=== PATIENT | male | born 1965 | race Caucasian/White ===

== ENCOUNTER 2017-03-20 11:37 | Day surgery (SDC) | payer BC ==
[~2017-03-20 11:37] MED LIST: Lactated Ringers 1,000 ML IV SCH; Sodium Chloride 0.9% 10 ML Syringe FLUSH PRN
[2017-03-20] MEDS ORDERED: fentaNYL 100 MCG/2 ML SDV ONE ×2 (12:52→13:00)
[2017-03-20] MEDS ORDERED: Propofol 200 MG/20 ML SDV ONE ×2 (12:52→13:00)
[2017-03-20] MEDS ORDERED: Midazolam 1 MG/ML 2 ML SDV ONE ×2 (12:52→13:00)
--- NOTE | 2017-03-20 13:05 | PCM.PN ---
- General Info Date of Service: 03/20/17 - Review of Systems Systems Review Comment:: 51-year-old male referred for his initial screening colonoscopy. He is medically stable to proceed with no significant change in his health status since his recent history and physical which is reviewed. The patient notes that he does have a family history of colon cancer in his father. I discussed the proposed colonoscopy with the patient. Risks such as but not limited to bleeding and GI injury reviewed. He appears to understand and agrees to proceed. - Patient Data Vitals - most recent: Last Vital Signs Temp 98.2 F 03/20/17 12:24 Pulse 63 03/20/17 12:24 Resp 20 03/20/17 12:24 BP 124/80 03/20/17 12:24 Pulse Ox 96 03/20/17 12:24 Weight - most recent: 88.451 kg Med Orders - Current: Current Medications Lactated Ringer's (Ringers, Lactated) 1,000 mls @ 70 mls/hr IV ASDIRECTED GURPREET Last Admin: 03/20/17 12:39 Dose: 70 mls/hr Sodium Chloride (Saline Flush) 10 ml FLUSH ASDIRECTED PRN PRN Reason: Keep Vein Open Discontinued Medications Fentanyl (Sublimaze) Confirm Administered Dose 100 mcg .ROUTE .STK-MED ONE Stop: 03/20/17 12:53 Midazolam HCl (Versed 1 Mg/Ml) Confirm Administered Dose 2 mg .ROUTE .STK-MED ONE Stop: 03/20/17 12:53 Propofol (Diprivan 20 Ml) Confirm Administered Dose 200 mg .ROUTE .STK-MED ONE Stop: 03/20/17 12:53 - Problem List Review Problem List Initiated/Reviewed/Updated: Yes - Assessment Assessment:: High risk colon cancer screening with family history of colon cancer - Plan Plan:: Colonoscopy
--- NOTE | 2017-03-20 13:38 | PCM.OPNOTE ---
- General Post-Op/Procedure Note Date of Surgery/Procedure: 03/20/17 Operative Procedure(s): Colonoscopy with Polypectomy Findings: Multiple small colon polyps Pre Op Diagnosis: Family History of Colon Cancer Post-Op Diagnosis: Colon Polyps Anesthesia Technique: MAC Primary Surgeon: Terrell Buckner Pathology: Colon Polyps Output, Urine Amount: 0 EBL in mLs: 0 Complications: None Condition: Good
--- NOTE | 2017-03-20 17:01 | OR ---
Date of Procedure: 03/20/2017 PREOPERATIVE DIAGNOSIS: Family history of colon cancer. POSTOPERATIVE DIAGNOSIS: Colon polyps. OPERATION PERFORMED: Colonoscopy with polypectomy. INDICATIONS FOR SURGERY: This 51-year-old male is referred for his initial colonoscopy. He does have a family history of colon cancer in his father who was diagnosed in his 8th decade of life. FINDINGS: Three polyps were noted on today's exam. There is a 5 mm polyp in the rectum, 10 cm from the anal verge. There is another 5 mm polyp in the sigmoid colon, 30 cm from the anal verge. There was also a 6 mm polyp in the cecum. All polyps were sessile in configuration. The remainder of the colon appeared normal. PROCEDURE: The patient was taken to the operating room. He was given intravenous sedation and with him in the left lateral decubitus position, digital rectal exam was performed showing no rectal masses. The Olympus colonoscope was inserted into the rectum. Retroflexed examination of the rectal canal was performed. The scope was then carefully advanced under direct visualization through the entire length of the colon until cecum was reached. Cecal acquisition was confirmed by noting the normal internal cecal anatomy including the appendiceal orifice and the ileocecal valve. The light was also noted to transilluminate the abdominal wall in the right lower quadrant. After examining the cecum, the scope was slowly withdrawn sequentially re-examining the colonic segments until the entire colon and rectum had been fully examined. During insertion and withdrawal of the scope, the above-described polyps were identified. These were each in turn removed with a cautery snare and retrieved into a polyp trap as they were identified. There was no evidence of any complication at the polypectomy site. After the examining had been completed, the scope was removed and the patient was then taken from the operating room in satisfactory condition. ESTIMATED BLOOD LOSS: Zero. COMPLICATIONS: None. PROGNOSIS: Good. ALANIS Buckner MD /[id number]
[2017-03-20 20:26] VITALS: BP 132/81
== END 2017-03-20 14:30 | disposition home or self-care (01) ==
LOC: LL.SDS 11:37
PROVIDERS: ATTEND Surgery
DX: Z12.11 Encounter for screening for malignant neoplasm of colon (principal); D12.0 Benign neoplasm of cecum; D12.5 Benign neoplasm of sigmoid colon; K62.1 Rectal polyp; Z80.0 Family history of malignant neoplasm of digestive organs; Z98.890 Other specified postprocedural states; Z79.899 Other long term (current) drug therapy
CPT/HCPCS: 45385; J2250; J2704; J3010; J7120

== ENCOUNTER 2023-05-22 12:03 | Day surgery (SDC) | payer BC ==
[~2023-05-22 12:03] MED LIST changes: -Lactated Ringers 1,000 ML IV SCH
[2023-05-22] MEDS: Lactated Ringers 1,000 ML IV SCH (13:36)
[2023-05-22] MEDS ORDERED: Propofol 200 MG/20 ML SDV ONE ×2 (15:07→15:45)
[2023-05-22] MEDS ORDERED: Midazolam 1 MG/ML 2 ML SDV ONE (15:09)
[2023-05-22] MEDS ORDERED: Lidocaine 2% 5 ML SDV ONE ×2 (15:10)
[2023-05-22 16:37] VITALS: BP 120/65; PULSE 63
== END 2023-05-22 17:05 | disposition home or self-care (01) ==
LOC: LL.SDS 12:03
PROVIDERS: ATTEND Surgery
DX: Z12.11 Encounter for screening for malignant neoplasm of colon (principal); D12.5 Benign neoplasm of sigmoid colon; K29.50 Unspecified chronic gastritis without bleeding; K21.00 Gastro-esophageal reflux disease with esophagitis, without bleeding; K31.7 Polyp of stomach and duodenum; Z86.010 Personal history of colon polyps; Z79.899 Other long term (current) drug therapy; Z98.890 Other specified postprocedural states
CPT/HCPCS: 00813; J2250; J2704; J3490; J7120